=== PATIENT | female | born 1950 | race Two or more races ===

== ENCOUNTER 2016-09-12 13:59 | Emergency (ER) | payer BC ==
--- NOTE | 2016-09-12 15:35 | ED ---
General Adult HPI - General Chief complaint: Extremity Problem,Nontraumatic Stated complaint: Poss Blood Clot in Left Leg Time Seen by Provider: 09/12/16 14:46 Source: patient, RN notes reviewed Mode of arrival: ambulatory Limitations: no limitations - History of Present Illness Initial comments: This is a 65-year-old female who presents with left lower extremity pain. Patient states she has a history of factor V Leiden. Patient denies any history of DVT or PE but has had superficial thromboembolism in the past. Patient states she was at a physical therapy appointment today and the physical therapist noticed that the patient had posterior left knee pain. Patient states this is been present for the last few days. Patient has not noticed any swelling, redness, calf pain or erythema to the left or right lower extremities. Patient states she was diagnosed with phlebitis of the left thigh ~2 weeks ago by her primary care physician. Patient denies being on any anticoagulants. Patient states she is concerned today for blood clot of the left lower extremity. Patient denies any injury to the left lower extremity. Patient denies any numbness/tingling or weakness of bilateral lower extremities. Patient states she is able to ambulate. Patient denies any recent fever, chills, shortness breath, chest pain, abdominal pain, nausea/ vomiting/diarrhea, back pain, hematuria, headache, or visual changes, or any other complaints. - Related Data Home Medications Medication Instructions Recorded Confirmed Albuterol Sulfate [Proair Hfa] 1 - 2 puff INHALATION RT-Q6H PRN 09/12/16 Alendronate Sodium [Fosamax] 70 mg PO TU 09/12/16 09/12/16 Allergies Allergy/AdvReac Type Severity Reaction Status Date / Time cephalexin [From Keflex] Allergy Unknown Verified 09/12/16 14:52 tramadol [From Ultram] Allergy Unknown Verified 09/12/16 14:52 Review of Systems ROS Statement: Those systems with pertinent positive or pertinent negative responses have been documented in the HPI. ROS Other: All systems not noted in ROS Statement are negative. Past Medical History Additional Past Medical History / Comment(s): Factor 5 History of Any Multi-Drug Resistant Organisms: None Reported Past Surgical History: Cholecystectomy, Hysterectomy Additional Past Surgical History / Comment(s): vein removal Past Psychological History: No Psychological Hx Reported Smoking Status: Never smoker Past Alcohol Use History: None Reported Past Drug Use History: None Reported General Exam - General Exam Comments Initial Comments: General: The patient is awake and alert, in no distress, and does not appear acutely ill. Neck: The neck is supple, there is no tenderness or JVD. Cardiovascular: There is a regular rate and rhythm. No murmur, rub or gallop is appreciated. Respiratory: Lungs are clear to auscultation, respirations are non-labored, breath sounds are equal. No wheezes, stridor, rales, or rhonchi. Musculoskeletal: There is tenderness to palpation of the posterior aspect of the left knee. There are multiple varicose veins to the right and left lower extremities. There is no calf tenderness, erythema, warmth or unilateral leg swelling noted. Full range of motion, strength 5/5 and Sensation intact. Posterior tibial pulses are 2+ bilaterally. Capillary refill is normal at less than 2 seconds bilaterally. Neurological: A&O x 3. CN II-XII intact, There are no obvious motor or sensory deficits. Coordination appears grossly intact. Speech is normal. Skin: Skin is warm and dry and no rashes or lesions are noted. Psychiatric: Normal mood and affect. Limitations: no limitations Course Vital Signs 09/12/16 09/12/16 14:31 16:15 Temperature 98 F 97.9 F Pulse Rate 69 68 Respiratory 20 18 Rate Blood Pressure 169/73 169/83 O2 Sat by Pulse 99 98 Oximetry Medical Decision Making - Medical Decision Making Physical 65-year-old female presents left posterior knee pain. On physical exam there is tenderness to palpation of the posterior aspect of the left knee. There are multiple varicose veins to the right and left lower extremities. There is no calf tenderness, erythema, warmth or unilateral leg swelling noted. Full range of motion, strength 5/5 and Sensation intact. Posterior tibial pulses are 2+ bilaterally. Capillary refill is normal at less than 2 seconds bilaterally. Ultrasound of the left lower extremity was done and reviewed showing: No deep venous thrombosis in the left lower extremity is visualized. Reportedly Dr. Ramirez. Discussed results with patient. Discussed return parameters. Discussed that patient should follow up with PCP in one to 2 days or return to the [facility] for any worsening symptoms or for any further concerns. Patient was receptive to this plan and patient will be discharged home. Disposition Clinical Impression: Posterior left knee pain, History of factor V Leiden mutation Disposition: HOME SELF-CARE Condition: Good Instructions: Knee Pain (ED) Additional Instructions: Please rest, ice, elevate the left lower extremity. Please use over-the- counter Tylenol or Motrin as needed for any pain. Please follow-up with family doctor in the next 2 days of symptoms have not improved. Please return to emergency room if the symptoms increase or worsen or for any other concerns. Referrals: Rizwan Sorto MD [Primary Care Provider] - 1-2 days Time of Disposition: 16:08
--- NOTE | 2016-09-12 16:03 | US ---
EXAMINATION TYPE: US venous doppler duplex LE LT DATE OF EXAM: 09/12/2016 3:05 PM COMPARISON: NONE CLINICAL HISTORY: Pain left leg. SIDE PERFORMED: Left VESSELS IMAGED: External Iliac Vein (EIV) Common Femoral Vein Deep Femoral Vein Greater Saphenous Vein * Femoral Vein Popliteal Vein Small Saphenous Vein * Proximal Calf Veins (* superficial vessels) Left Leg: No evidence of DVT davidson scale, color Doppler, spectral Doppler imaging performed at the se of the left lower extremity. IMPRESSION: No deep venous thrombosis in the left lower extremity is visualized.
[2016-09-12 16:16] VITALS: BP 169/83; PULSE 68; RESP 18; TEMP 97.9
== END 2016-09-12 16:16 | disposition home or self-care (01) ==
LOC: EC 13:59
DX: M25.562 Pain in left knee (principal); D68.51 Activated protein C resistance; I83.93 Asymptomatic varicose veins of bilateral lower extremities; Z79.899 Other long term (current) drug therapy; Z88.1 Allergy status to other antibiotic agents; Z88.5 Allergy status to narcotic agent
CPT/HCPCS: 99283

== ENCOUNTER 2025-04-01 10:58 | Emergency (ER) | payer BC, MEDICARE ==
[2025-04-01] MEDS: ONDANSETRON 4 MG/2 ML VIAL IVP STA (12:29)
[2025-04-01] MEDS: SODIUM CHLORIDE 0.9% 1,000 ML IV SCH (12:29)
[2025-04-01] MEDS: PANTOPRAZOLE 40 MG/10 ML VIAL IVP STA (12:29)
[2025-04-01] MEDS: ACETAMINOPHEN IV (For NPO) 1,000 MG in EMPTY BAG 1 BAG IVPB STA (12:37)
[2025-04-01 12:43] LABS: Basophils # (A) 0.03 10*3/uL (0.00-0.10); Basophils % (A) 0.5 %; Eosinophils # (A) 0.02 10*3/uL (0.04-0.35); Eosinophils % (A) 0.3 %; HCT 35.8 % (37.2-46.3); HGB 12.4 g/dL (12.0-15.0); Lymphocytes # (A) 1.03 10*3/uL (0.90-5.00); Lymphocytes % (A) 16.9 %; MCH 32.9 pg (27.0-32.0); MCHC 34.6 g/dL (32.0-37.0); MCV 95.0 fL (80.0-97.0); Monocytes # (A) 0.56 10*3/uL (0.20-1.00); Monocytes % (A) 9.2 %; Neutrophils # (A) 4.42 10*3/uL (1.80-7.70); Neutrophils % (A) 72.8 %; Platelet Count 186 10*3/uL (140-440); RBC 3.77 10*6/uL (4.10-5.20); RDW 13.0 % (11.5-14.5); WBC 6.08 10*3/uL (4.50-10.00)
--- NOTE | 2025-04-01 12:56 | XR ---
EXAMINATION TYPE: XR chest 2V DATE OF EXAM: 04/01/2025 12:48 PM COMPARISON: None. CLINICAL INDICATION: Female, 74 years old with history of Cough, fever, nausea TECHNIQUE: XR chest 2V view(s) obtained. FINDINGS: The heart size is normal. The pulmonary vasculature is normal. The lungs are clear. IMPRESSION: 1. No acute pulmonary process. [facility], Workstation: [facility], 04/01/2025 12:54 PM
--- NOTE | 2025-04-01 12:57 | ED ---
Nausea/Vomiting/Diarrhea HPI - General Chief complaint: Abdominal Pain Stated complaint: Vomiting/Body Aches Time Seen by Provider: 04/01/25 11:50 Source: patient, family, RN notes reviewed Mode of arrival: wheelchair Limitations: no limitations - History of Present Illness Initial comments: This is a 74-year-old female who presents to the emergency department for nausea and vomiting. Patient states that last night she was feeling weak and generally unwell. This morning when she woke up she had a fever with nausea and vomiting which she has been unable to get under control. Reports generalized abdominal discomfort as well. Her daughter also notes that she has been struggling to get rid of a UTI and has been on multiple antibiotics over the last month. She just finished Levaquin yesterday. MD complaint: nausea, vomiting - Related Data Home Medications Medication Instructions Recorded Confirmed Albuterol Sulfate [Proair Hfa] 1 - 2 puff INHALATION RT-Q6H PRN 09/12/16 09/12/16 Alendronate Sodium [Fosamax] 70 mg PO TU 09/12/16 09/12/16 Previous Rx's Medication Instructions Recorded Ondansetron Odt [Zofran Odt] 4 mg PO Q8HR PRN #20 tab 04/01/25 Allergies Allergy/AdvReac Type Severity Reaction Status Date / Time cephalexin [From Keflex] Allergy Unknown Verified 09/12/16 14:52 sulfamethoxazole Allergy Rash/Hives Verified 04/01/25 11:32 [From Septra] tramadol [From Ultram] Allergy Unknown Verified 09/12/16 14:52 trimethoprim [From Septra] Allergy Rash/Hives Verified 04/01/25 11:32 Review of Systems ROS Statement: Those systems with pertinent positive or pertinent negative responses have been documented in the HPI. ROS Other: All systems not noted in ROS Statement are negative. Past Medical History Past Medical History: Hyperlipidemia, Hypertension Additional Past Medical History / Comment(s): Factor 5 History of Any Multi-Drug Resistant Organisms: None Reported Past Surgical History: Cholecystectomy, Hysterectomy Additional Past Surgical History / Comment(s): vein removal, bladder suspension Past Psychological History: No Psychological Hx Reported Past Alcohol Use History: None Reported Past Drug Use History: None Reported General Exam Limitations: no limitations General appearance: alert, in no apparent distress Head exam: Present: atraumatic, normocephalic, normal inspection Respiratory exam: Present: normal lung sounds bilaterally. Absent: respiratory distress, wheezes, rales, rhonchi, stridor Cardiovascular Exam: Present: regular rate, normal rhythm GI/Abdominal exam: Present: soft, tenderness (RLQ). Absent: distended Neurological exam: Present: alert, oriented X3, CN II-XII intact Psychiatric exam: Present: normal affect, normal mood Skin exam: Present: warm, dry, intact, normal color. Absent: rash Course Vital Signs 04/01/25 04/01/25 04/01/25 11:29 14:47 17:04 Temperature 101.4 F H 98.9 F 98.9 F Pulse Rate 85 68 Respiratory 16 18 Rate Blood Pressure 174/79 139/70 O2 Sat by Pulse 95 98 Oximetry Medical Decision Making - Medical Decision Making This is a 74-year-old female who presents to the emergency department for nausea and vomiting. Was pt. sent in by a medical professional or institution? @ -No Did you speak to anyone other than the patient for history? @ -No Did you review nursing and triage notes? @ -Yes, and I agree, it is accurate with regards to the patient's symptoms. Were old charts reviewed? @ -No Differential Diagnosis? @ -Differential Nausea and Vomiting: Gastroenteritis, cholecystitis, appendicitis, pancreatitis, migraine, benign pos itional vertigo, food borne illness, pyelonephritis, irritable bowel syndrome, influenza, Covid, GERD, incarcerated hernia, intestinal obstruction, this is not meant to be an all-inclusive list. EKG interpreted by me (3pts min.)? @ -Not obtained X-rays interpreted by me (1pt min.)? @ -Chest x-ray obtained, my interpretation identifies no localized consolidations or infiltrates. CT interpreted by me (1pt min.)? @ -CT scan of the abdomen and pelvis obtained. My interpretation identifies no bowel wall thickening or free air. U/S interpreted by me (1pt. min.)? @ -Not obtained What testing was considered but not performed? (CT, X-rays, U/S, labs)? Why? @ -None What meds were considered but not given? Why? @ -None Did you discuss the management of the patient with other professionals? @ -No Did you reconcile home meds? @ -No Was smoking cessation discussed for >3mins.? @ -No Was critical care preformed (if so, how long)? @ -No Were there social determinants of health that impacted care today? How? (Homelessness, low income, unemployed, alcoholism, drug addiction, transportation, low edu. Level, literacy, decrease access to med. care, shelter, rehab)? @ -No Was there de-escalation of care discussed even if they declined? (Discuss DNR or withdrawal of care, Hospice)? @ -No What co-morbidities impacted this encounter? (DM, HTN, Smoking, COPD, CAD, Cancer, CVA, Hep., AIDS, mental health diagnosis, sleep apnea, morbid obesity)? @ -HLD, HTN Was patient admitted / discharged? @ -Discharged. Patient was febrile on arrival with a temp of 101.4. Lab work demonstrates mild hypomagnesemia with a magnesium of 1.4 and was otherwise unremarkable. Urinalysis negative for signs of infection. 400 mg of magnesium oxide and 2 g of magnesium sulfate administered. Ibuprofen and Tylenol administered for the fever which did reduce successfully. Chest x-ray obtained revealing no acute findings. CT scan of the abdomen and pelvis obtained as well as revealing no acute intra-abdominal process. Symptoms likely viral in nature. IV fluids and Zofran administered with improvement in symptoms and she was tolerating oral intake without difficulty. Family did request a urine culture, as they state that her urinalysis is often negative and the culture then returns positive. Urine sent for culture. Zofran prescribed for further management of any additional nausea. Advised that she continue with ibuprofen and Tylenol as needed for fevers and follow-up with her primary care provider. Patient discharged home in stable condition. Case discussed with ED attending Dr. Shaver. Return precautions reviewed in depth, the patient is instructed to return to the emergency department with any new, worsening, or concerning symptoms. Patient verbalized understanding. Undiagnosed new problem with uncertain prognosis? @ -None Drug Therapy requiring intensive monitoring for toxicity (Heparin, Nitro, Insulin, Cardizem)? @ -None Were any procedures done? @ -None Diagnosis/symptom? @ -Nausea and vomiting, fever, hypomagnesemia Acute, or Chronic, or Acute on Chronic? @ -Acute Uncomplicated (without systemic symptoms) or Complicated (systemic symptoms)? @ -Uncomplicated Side effects of treatment? @ -None Exacerbation, Progression, or Severe Exacerbation] @ -Not applicable Poses a threat to life or bodily function? @ -No - Lab Data Result diagrams: 04/01/25 12:19 04/01/25 12:19 Lab Results 04/01/25 04/01/25 04/01/25 Range/Units 12:19 12:19 12:19 WBC 6.08 (4.50-10.00) 10*3/uL RBC 3.77 L (4.10-5.20) 10*6/uL Hgb 12.4 (12.0-15.0) g/dL Hct 35.8 L (37.2-46.3) % MCV 95.0 (80.0-97.0) fL MCH 32.9 H (27.0-32.0) pg MCHC 34.6 (32.0-37.0) g/dL Plt Count 186 (140-440) 10*3/uL MPV 10.3 (9.5-12.2) fL Immature Gran % (Auto) 0.3 % Neutrophils % 72.8 % Lymphocytes % 16.9 % Monocytes % 9.2 % Eosinophils % 0.3 % Basophils % 0.5 % Immature Gran # 0.02 (0.00-0.04) 10*3/uL Neutrophils # 4.42 (1.80-7.70) 10*3/uL Lymphocytes # 1.03 (0.90-5.00) 10*3/uL Monocytes # 0.56 (0.20-1.00) 10*3/uL Eosinophils # 0.02 L (0.04-0.35) 10*3/uL Basophils # 0.03 (0.00-0.10) 10*3/uL Sodium 138 (137-145) mmol/L Potassium 4.3 (3.5-5.1) mmol/L Chloride 108 H (98-107) mmol/L Carbon Dioxide 24 (22-30) mmol/L Anion Gap 6 mmol/L BUN 6 L (7-17) mg/dL Creatinine 0.74 (0.52-1.04) mg/dL Est GFR (CKD-EPI)AfAm >90 (>60 ml/min/1.73 sqM) Est GFR (CKD-EPI)NonAf 81 (>60 ml/min/1.73 sqM) Glucose 104 H (74-99) mg/dL Plasma Lactic Acid Andrae 1.0 (0.7-2.0) mmol/L Calcium 8.9 (8.4-10.2) mg/dL Magnesium 1.4 L (1.6-2.3) mg/dL Total Bilirubin 1.0 (0.2-1.3) mg/dL AST 18 (14-36) U/L ALT 10 (4-34) U/L Alkaline Phosphatase 52 (38-126) U/L Total Protein 6.1 L (6.3-8.2) g/dL Albumin 3.5 (3.5-5.0) g/dL Amylase <30 L (30-110) U/L Lipase 21 L (23-300) U/L Urine Color Urine Appearance (Clear) Urine pH (5.0-8.0) Ur Specific [place] (1.001-1.035) Urine Protein (Negative) Urine Glucose (UA) (Negative) Urine Ketones (Negative) Urine Blood (Negative) Urine Nitrite (Negative) Urine Bilirubin (Negative) Urine Urobilinogen (<2.0) mg/dL Ur Leukocyte Esterase (Negative) 04/01/25 Range/Units 14:01 WBC (4.50-10.00) 10*3/uL RBC (4.10-5.20) 10*6/uL Hgb (12.0-15.0) g/dL Hct (37.2-46.3) % MCV (80.0-97.0) fL MCH (27.0-32.0) pg MCHC (32.0-37.0) g/dL Plt Count (140-440) 10*3/uL MPV (9.5-12.2) fL Immature Gran % (Auto) % Neutrophils % % Lymphocytes % % Monocytes % % Eosinophils % % Basophils % % Immature Gran # (0.00-0.04) 10*3/uL Neutrophils # (1.80-7.70) 10*3/uL Lymphocytes # (0.90-5.00) 10*3/uL Monocytes # (0.20-1.00) 10*3/uL Eosinophils # (0.04-0.35) 10*3/uL Basophils # (0.00-0.10) 10*3/uL Sodium (137-145) mmol/L Potassium (3.5-5.1) mmol/L Chloride (98-107) mmol/L Carbon Dioxide (22-30) mmol/L Anion Gap mmol/L BUN (7-17) mg/dL Creatinine (0.52-1.04) mg/dL Est GFR (CKD-EPI)AfAm (>60 ml/min/1.73 sqM) Est GFR (CKD-EPI)NonAf (>60 ml/min/1.73 sqM) Glucose (74-99) mg/dL Plasma Lactic Acid Andrae (0.7-2.0) mmol/L Calcium (8.4-10.2) mg/dL Magnesium (1.6-2.3) mg/dL Total Bilirubin (0.2-1.3) mg/dL AST (14-36) U/L ALT (4-34) U/L Alkaline Phosphatase (38-126) U/L Total Protein (6.3-8.2) g/dL Albumin (3.5-5.0) g/dL Amylase (30-110) U/L Lipase (23-300) U/L Urine Color Light Yellow Urine Appearance Clear (Clear) Urine pH 7.5 (5.0-8.0) Ur Specific [place] 1.016 (1.001-1.035) Urine Protein Negative (Negative) Urine Glucose (UA) Negative (Negative) Urine Ketones Negative (Negative) Urine Blood Negative (Negative) Urine Nitrite Negative (Negative) Urine Bilirubin Negative (Negative) Urine Urobilinogen <2.0 (<2.0) mg/dL Ur Leukocyte Esterase Negative (Negative) - Radiology Data Radiology results: report reviewed, image reviewed Disposition Clinical Impression: Fever, Nausea and vomiting, Hypomagnesemia Disposition: HOME SELF-CARE Instructions (If sedation given, give patient instructions): Acute Nausea and Vomiting (ED) Additional Instructions: Return to the emergency department with any new, worsening, or concerning symptoms. Take the Zofran up to every 8 hours as needed for nausea and vomiting. Continue to alternate with ibuprofen and Tylenol as needed for any additional fevers. Slowly advance your diet as tolerated and remain well hydrated. Follow up with your primary care provider in 1-2 days. Prescriptions: Ondansetron Odt [Zofran Odt] 4 mg PO Q8HR PRN #20 tab PRN Reason: Nausea And Vomiting Is patient prescribed a controlled substance at d/c from ED?: No Referrals: Rizwan Sorto MD [Primary Care Provider] - 1-2 days Time of Disposition: 15:15
[2025-04-01 12:59] LABS: ALT 10 U/L (4-34); AST 18 U/L (14-36); African American GFR (CKD) >90 (>60 ml/min/1.73 sqM); Albumin 3.5 g/dL (3.5-5.0); Alkaline Phosphatase 52 U/L (38-126); Amylase <30 U/L (30-110); Anion Gap 6 mmol/L; Blood Urea Nitrogen 6 mg/dL (7-17); Calcium 8.9 mg/dL (8.4-10.2); Carbon Dioxide 24 mmol/L (22-30); Chloride 108 mmol/L (98-107); Glucose 104 mg/dL (74-99); Lipase 21 U/L (23-300); Magnesium 1.4 mg/dL (1.6-2.3); Non-African American GFR(CKD) 81 (>60 ml/min/1.73 sqM); Potassium 4.3 mmol/L (3.5-5.1); Sodium 138 mmol/L (137-145); Total Protein 6.1 g/dL (6.3-8.2)
[2025-04-01] MEDS: IBUPROFEN IV 400 MG in SODIUM CHLORIDE 0.9% 100 ML IV ONE (14:01)
--- NOTE | 2025-04-01 14:19 | CT ---
EXAMINATION TYPE: CT abdomen pelvis w con CT DLP: 1135.8 mGycm, Automated exposure control for dose reduction was used. DATE OF EXAM: 04/01/2025 2:07 PM COMPARISON: None CLINICAL INDICATION:Female, 74 years old with history of Lower abdominal pain; lower abd pain TECHNIQUE: Standard CT of the abdomen and pelvis following the administration of 100 cc of Isovue 3 00 IV contrast material. Coronal and sagittal reformats were performed. FINDINGS: LOWER CHEST: Unremarkable ABDOMEN LIVER: Unremarkable GALLBLADDER AND BILE DUCTS: The gallbladder is surgically absent. No significant biliary duct dilatat ion. PANCREAS: Unremarkable. SPLEEN: Unremarkable. ADRENAL GLANDS: Unremarkable. KIDNEYS AND URETERS: No evidence of hydronephrosis or renal calculus. The kidneys enhance symmetrical ly. Contrast is demonstrated within both collecting systems and proximal ureters on the delayed phase . PELVIS BLADDER: Incompletely distended but grossly unremarkable. REPRODUCTIVE: The uterus is surgically absent. Both ovaries appear symmetric and unremarkable. ABDOMEN & PELVIS STOMACH AND BOWEL: Small hiatal hernia, duodenum is unremarkable. Distal colonic diverticulosis witho ut evidence for acute diverticulitis. The appendix is not visualized. No significant inflammatory liliana nges within the right lower quadrant. No evidence of bowel obstruction. PERITONEUM: No evidence of pneumoperitoneum or free fluid. VASCULATURE: No evidence of aortic aneurysm. MUSCULOSKELETAL: No acute osseous abnormalities LYMPH NODES: No evidence for lymphadenopathy. SOFT TISSUE/ABDOMINAL WALL: Unremarkable IMPRESSION: 1. No CT evidence for acute abdominal/pelvic process. 2. Colonic diverticulosis without definitive evidence for acute diverticulitis. [facility], , 04/01/2025 2:17 PM
[2025-04-01 14:24] LABS: Bilirubin,Urine Negative (Negative); Blood,Urine Negative (Negative); Color,Urine Light Yellow; Glucose,Urine (UA) Negative (Negative); Ketones,Urine Negative (Negative); Leukocyte Esterase,Urine Negative (Negative); Nitrite,Urine Negative (Negative); PH, Urine 7.5 (5.0-8.0); Protein,Urine Negative (Negative); Specific Gravity,Urine 1.016 (1.001-1.035); Urobilinogen,Urine <2.0 mg/dL (<2.0)
[2025-04-01 14:47] VITALS: TEMP 98.9
[2025-04-01] MEDS: MAGNESIUM OXIDE 400 MG TAB PO STA (14:47)
[2025-04-01] MEDS: MAGNESIUM SULFATE-D5W PMX 1 GM in DEXTROSE/WATER 1 100ML.BAG IVPB SCH (14:48)
[2025-04-01 17:06] VITALS: BP 139/70; PULSE 68; RESP 18
== END 2025-04-01 17:06 | disposition home or self-care (01) ==
LOC: EC 10:58
DX: E83.42 Hypomagnesemia (principal); E78.5 Hyperlipidemia, unspecified; I10 Essential (primary) hypertension; Z88.1 Allergy status to other antibiotic agents; Z88.2 Allergy status to sulfonamides; Z88.5 Allergy status to narcotic agent
CPT/HCPCS: 36415; 80053; 82150; 83605; 83690; 83735; 85025; 81003; 87086; 71046; 74177; 99284; 96365; 96367; 96366 ×2; 96375 ×2; J2405; J3475; J0131; J1741; Q9967; J2470